=== PATIENT | female | born 1995 ===

== ENCOUNTER 2017-12-30 19:07 | Emergency (ER) | payer OTHER ==
[2017-12-30 19:54] LABS: #Eosinphils 0.1 thou/uL (0.0-0.7); #Lymphocytes 2.3 thou/uL (1.20-3.40); #Monocytes 0.5 thou/uL (0.11-0.59); #Neutrophils 2.4 thou/uL (1.40-6.50); %Basophils 0.5 % (0.0-1.0); %Lymphocytes 43.5 % (28.0-48.0); %Monocytes 9.4 % (0.0-4.0); %Neutrophils 45.6 % (31.0-61.0); Hemoglobin 13.2 g/dL (12.0-16.0); Mean Corpuscular HGB CONC 33.8 g/dL (32.0-36.0); Mean Corpuscular Volume 91.8 fl (77.0-87.0); Mean Platelet Volume 6.4 fL (7.4-10.4); Platelet Count 256 thou/uL (130-400); RBC Distribution Width 11.9 % (11.5-14.5); Red Blood Cell (RBC) Count 4.25 mill/uL (4.00-5.20); White Blood Cell (WBC) Count 5.3 thou/uL (4.8-10.8)
[2017-12-30 20:12] LABS: BHCG - Serum Negative (NEGATIVE); Pregs Control Background? CLEAR/WHITE (CLR/WHITE); Pregs Control Bar Appear? YES (CONTROL BAR)
[2017-12-30 20:13] LABS: Alcohol Less than 10 mg/dL (Less than 10); Anion Gap 14 mmol/L (10-20); BUN (Urea Nitrogen) 12 mg/dL (7.0-18.7); Calc. Creatinine Clearance 0 mL/min (70-130); Calcium 9.4 mg/dL (7.8-10.44); Carbon Dioxide 21 mmol/L (22-29); Chloride 107 mmol/L (98-107); Estimated GFR-MDRD 77; Glucose 106 mg/dL (70-105); Potassium 3.6 mmol/L (3.5-5.1); Sodium 138 mmol/L (136-145)
--- NOTE | 2017-12-30 20:26 | CT ---
HEAD CT: Date: 12-30-17 Comparison: None. History: Trauma, pain. FINDINGS: The imaged paranasal sinuses/mastoid air cells are well aerated. There is no displaced calvarial frac ture. No intracranial hemorrhage, midline shift, mass effect, or ventricular enlargement noted. There is soft tissue swelling in the right periorbital region. IMPRESSION: Soft tissue swelling in the right periorbital region. No displaced calvarial fracture or intracranial hemorrhage. POS: [facility]
[2017-12-30] MEDS ORDERED: Ketorolac Tromethamine 30 MG/ML VIAL ONE (20:36)
--- NOTE | 2017-12-30 21:05 | CT ---
CT OF THE FACIAL BONES: Date: 12-30-17 Comparison: None. History: Facial trauma. Pain. Technique: Serial axial CT imaging at 2.5 mm intervals through the facial bones with coronal and sagi ttal reformatted imaging. The frontal sinuses, maxillary sinuses, ethmoid air cells and sphenoid sin uses are unremarkable. Imaged portions of the mandible and temporomandibular joints appear unremarkab le. The nasal bones, zygomatic arches and teratoid plates appear intact. Orbital floor and medial orb ital wall is unremarkable. There is soft tissue swelling in the right periorbital region. IMPRESSION: Right sided periorbital soft tissue swelling. No facial fracture seen. POS: [facility]
--- NOTE | 2017-12-30 21:07 | CT ---
CERVICAL SPINE CT WITHOUT CONTRAST: Date: 12-30-17 Comparison: None. History: Trauma, pain. Technique: Serial CT imaging at 2.5 mm intervals from skull base through the lung apices without cont rast. Coronal and sagittal reformatted imaging obtained. FINDINGS: The imaged lung bases are unremarkable. The C1 ring, occipital condyles, dens, C1-2 articulation, window and siding craftsman niocervical junction, and cervicothoracic junction unremarkable. No prevertebral soft tissues swelling. Cervical vertebral body height and alignment within normal nogueira its. No acute fracture or evidence of dislocation seen. IMPRESSION: No acute findings. POS: [facility]
--- NOTE | 2017-12-30 21:12 | CT ---
CT OF THE CHEST CT OF THE ABDOMEN AND PELVIS CT OF THORACIC AND LUMBAR SPINE: Date: 12-30-17 Comparison: None. History: Trauma, pain. Technique: Serial axial CT imaging at 5 mm from thoracic inlet through pubic symphysis with IV contra st. Coronal and sagittal reformatted imaging of the chest, abdomen, pelvis, thoracic spine, and lumba r spine obtained. FINDINGS: There is no lymphadenopathy in the chest. Mild soft tissue density in the prevascular space suggests residual thymic tissue. No vascular abnormality identified within the chest. No pleural, pericardial, or mediastinal fluid seen. There is no pneumothorax on either side. The lung parenchyma appears nighat sly unremarkable bilaterally. The extraspinal osseous structures of the chest appear unremarkable. Th ere is no endobronchial lesion seen. No free intraperitoneal air. The liver, gallbladder, spleen, pancreas, adrenal glands and kidneys are unremarkable. Limited assessment of the bowel is unremarkable. Vascular structures of the abdomen and pelvis appear patent. No abnormal or pelvic lymphadenopathy. Extraspinal osseous structures of abdomen/pelvis demonstrate no acute findings. THORACIC SPINE: Thoracic vertebral body height and alignment is normal. No fracture or dislocation. LUMBAR SPINE: Lumbar vertebral body height and alignment is normal. No fracture or dislocation. IMPRESSION: No acute findings. POS: [facility]
== END 2017-12-30 21:30 | disposition home or self-care (01) ==
LOC: ERS 19:07
DX: S01.81XA Laceration without foreign body of other part of head, initial encounter (principal); V43.52XA Car driver injured in collision with other type car in traffic accident, initial encounter
CPT/HCPCS: 12011; 36415; 70450; 70486; 71260; 72125; 74177; 80048; 80307; 84703; 85025; J1885